=== PATIENT | male | born 2000 | race Caucasian/White ===

== ENCOUNTER 2021-01-07 14:12 | Observation (INO) | payer MEDICAID, SELFPAY ==
[2021-01-07 14:13] VITALS: BP 132/66; PULSE 112; RESP 18; TEMP 36.6; O2SAT 94
[2021-01-07 14:19] VITALS: RESP 18
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
[2021-01-07] MEDS: LORazepam 2 MG/ML VIAL IM (16:53)
[2021-01-07] MEDS: Haloperidol 5 MG/ML VIAL IM/IV (16:53)
[2021-01-07 17:48] LABS: Abs Immature Grans 0.01 10^3/uL (0.0-0.06); Absolute Basophil Count 0.03 10^3/uL (0.0-0.2); Absolute Eosinophil Count 0.11 10^3/uL (0.0-0.7); Absolute Monocyte Count 0.35 10^3/uL (0.1-0.8); Absolute Neutrophil Count 4.32 10^3/uL (1.2-6.7); Basophils % 0.4; Eosinophils % 1.6; HCT 43.1 % (40.0-50.0); HGB 14.6 g/dL (13.5-17.5); Immature Grans % 0.1; Lymphocytes % 29.3; MCH 30.4 pg (27.0-33.0); MCHC 33.9 % (32.0-36.0); MCV 89.8 fL (80-95); MPV 9.9 fL (8.0-11.0); Monocytes % 5.1; Neutrophils % 63.5; Nucleated RBC 0 %; Platelet Count 238 10^3/uL (130-400); RDW 11.4 % (11.8-14.1); RDW-SD 37.3 fL; WBC 6.82 10^3/uL (4.4-10.8)
[2021-01-07 18:15] LABS: ALT 22 U/L (16-63); AST 20 U/L (15-37); Alkaline Phosphatase 67 U/L (46-116); BUN 14 mg/dL (7-18); Bilirubin, Total 0.5 mg/dL (0.2-1.0); CREATININE 0.7 mg/dL (0.70-1.30); Calcium 8.9 mg/dL (8.5-10.1); Chloride 106 mmol/L (98-107); Glucose 93 mg/dL (74-106); Magnesium 1.9 mg/dL (1.8-2.4); Potassium 3.4 mmol/L (3.5-5.1); Sodium 143 mmol/L (136-145); TSH (W/Ref FT4) 2.08 uIU/mL (0.52-4.13); Total Protein 7.2 g/dL (6.4-8.2)
[2021-01-07 19:25] LABS: Bilirubin Negative (Negative); Blood Negative (Negative); Clarity Clear (Clear); Glucose Negative (Negative); Ketones 40 mg/dL (Negative); Leukocyte Esterase Negative (Negative); Nitrite Negative (Negative); Specific Gravity >= 1.030 (1.005-1.025); Urobilinogen 0.2 EU/dL (Up TO 0.2); pH 6.5 (5-8)
[2021-01-07 19:28] LABS: C-Reactive Protein < 0.05 mg/dL (0.0-0.3)
--- NOTE | 2021-01-07 20:21 | PDOC.MHCN ---
Date of service: 01/07/21 Time of Service: 20:21 Mental Health Crisis Note Presenting Issue How did you arrive at the ED and why did you come: Pt arrived via ambulance after his father and guardian called for one in hopes that he would go to [facility]. The ambulance informed him and the home provider that they would only bring to [facility]. Precipitating Factors Pt responds via shaking his whole body or smiling for yes or head no for no per Dr. Drake's interactions. This is not as clear to this clinician in her interactions. He shock his whole body when asked if he was suicidal. He shoock his head no when asked about homicide. Disposition BEHAVIOR: Pt is asleep when this clinician arrived. It took several times of calling his name to wake him. He is quick to roll over and go back to sleep when the brief interaction is done as this clinician cannot get a full assessment of the Pt without his communication device and all documentation here is a guess and not able to be confirmed. Pt is reported to not be taking his medications, eating or drinking. He answered as above to these questions to what this clinician is believing is a yes. Once the father came with his chair and his communication device we learned that the Pt deleted his device's memory. Dad tried to fill in gaps. EYE CONTACT: Eye contact is fair initially but continued to become worse. MOOD: Mood is reported by Pt to be depressed. Again, as the Pt responded earlier he moved his body but did not smile. AFFECT: affect is flat. APPETITE: Pt again, with body movements as described by Dr. Drake he seemed to say yes. SLEEP(trouble falling/staying asleep: Pt reported that he is sleeping. Plan Pt's father is seeking an inpatient referral for psychiatric assessment. [facility] will attempt to do this but will need the support of his team while he is at [facility]. He will remain at [facility] and father will try to upload his memory again with a [employer] [address]. Signature Clinician's Name/Title: Linnea Singh MS, [facility] Emergency Services Clinician
[2021-01-07 23:00] LABS: Source Nasal/Nares
--- NOTE | 2021-01-07 23:21 | HPE_ITS ---
Date of service: 01/07/21 Time of Service: 23:21 Assessment and Plan Assessment and plan (1) Agitation: Start date: 01/07/21 Status: Acute Assessment and plan: This is a 20-year-old gentleman with cerebral palsy who has worsening of depression with agitation and refusal of feeds or medications recently at his care facility. It appears he was recently placed with a parapatellarly rather than having lived there most of his life. His parents are . His father is being supported. Plans are for him to be transferred to [facility] inpatient psychiatry for evaluation and treatment. This is voluntary. He is not agitated after IM Haldol and Ativan was given in the ED early during his ED stay. (2) Depression: Status: Chronic Assessment and plan: Continue Lexapro but decrease dose to 10 mg daily and monitor awaiting placement for psychiatric care. Qualifiers: Depression Type: reactive depression Qualified Code(s): F32.9 - Major depressive disorder, single episode, unspecified (3) Cerebral palsy: Status: Chronic Assessment and plan: Continue usual medications except for decreased Lexapro. Continue feeds through J-tube. Patient apparently can eat when fed by mouth but has been refusing. This appears to be a stable problem but causing patient to be total care which is difficult during his social change. 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 He has depression and recently has been agitated and difficult to control refusing medical therapy at his care facility. He was brought to the ED for evaluation because of this problem and became more agitated as he stayed longer in the ED without transfer to [facility] where he had pediatric neurologist cares for the patient most of his life. He did receive Ativan and Haldol IM in the ED and was calm afterwards. His father did come in with his computer and irrigation device but this was not able to be used during his admission. At the time I saw the patient he was in his bed in the left position with blankets covering home and comfortable. He is on Lexapro 15 mg daily and pediatric neurology did suggested decreasing this medication but had no other suggestions immediately for treatment. He will be transferred to [facility] psychiatric for inpatient care voluntarily in the morning. Patient offers no further history. Is unclear how long he has been at the care facility and whether he is from his parents who are going through a separation themselves may have contributed to his activity recently. Review of Systems Narrative: 13 point review of systems otherwise unrevealing course stable with patient having minimal conversation with the ED physician for review of systems. [facility] Medical History Cerebral palsy Depression Social History Smoking/Tobacco Use Status: Never Smoking risk assessment performed?: Yes Alcohol Intake: never Drug use: Never Substance use type: does not use Meds Allergies and Home Medications Allergies Allergy/AdvReac Type Severity Reaction Status Date / Time codeine Allergy Other (See Unverified 01/07/21 16:07 Comment) gabapentin Allergy Other (See Unverified 01/07/21 16:07 Comment) gluten Allergy Other (See Unverified 01/07/21 16:07 Comment) Home Medications Medication Instructions Recorded Confirmed Type Lactobacillus acidophilus 1 cap FEEDING TUBE HS 01/07/21 01/07/21 History acetaminophen 650 mg FEEDING TUBE PRN PRN 01/07/21 01/07/21 History diphenhydramine HCl [Banophen] 25 mg FEEDING TUBE Q6H PRN 01/07/21 01/07/21 History escitalopram oxalate [Lexapro] 5 mg FEEDING TUBE DAILY 01/07/21 01/07/21 History escitalopram oxalate [Lexapro] 10 mg FEEDING TUBE DAILY 01/07/21 01/07/21 History ibuprofen 400 mg FEEDING TUBE PRN PRN 01/07/21 01/07/21 History midazolam 5 mg INTRANASAL PRN PRN 01/07/21 01/07/21 History quetiapine [Seroquel] 25 mg FEEDING TUBE DAILY PRN 01/07/21 01/07/21 History tizanidine 2 mg FEEDING TUBE BID 01/07/21 01/07/21 History Exam Narrative Exam Narrative: General: Patient appears thin but not malnourished having recently refused feeds through his J-tube. He is in the position on the left side in bed. HEENT: Normocephalic, eyes with pupils equal and reactive light symmetrically, extraocular movement intact and sclera anicteric. Neck: Supple. Back: Stooped posture with patient curled up. Lungs: Clear to auscultation percussion. Heart: Regular rate and rhythm with no murmurs gallops appreciated. Abdomen: Scaphoid contour, soft and nontender to palpation. Genitalia/rectal: Exam deferred. Extremities: Without clubbing, cyanosis or edema. Joints have no swelling. Skin: Normal color, warm and dry. Neuro: Cranial nerves II through XII appear to be grossly intact, no focal motor deficits with patient moving all extremities. Psych: Cerebral palsy affect, noncommunicative. Results Labs Result diagrams: 01/07/21 17:42 01/07/21 17:42 Labs: Laboratory Results - last 24 hr 01/07/21 01/07/21 01/07/21 17:42 17:42 17:42 WBC 6.82 RBC 4.80 Hgb 14.6 Hct 43.1 MCV 89.8 MCH 30.4 MCHC 33.9 RDW 11.4 L Plt Count 238 MPV 9.9 Immature Gran % 0.1 Neutrophils % 63.5 Lymphocytes % 29.3 Monocytes % 5.1 Eosinophils % 1.6 Basophils % 0.4 Nucleated RBC % 0 Absolute Neutrophils 4.32 Absolute Lymphocytes 2.00 Absolute Monocytes 0.35 Absolute Eosinophils 0.11 Absolute Basophils 0.03 Sodium 143 Potassium 3.4 L Chloride 106 Carbon Dioxide 28.0 Anion Gap 9.0 BUN 14 Creatinine 0.7 Estimated GFR/1.73 m2 >= 60.00 Glucose 93 Calcium 8.9 Magnesium 1.9 Total Bilirubin 0.5 AST 20 ALT 22 Alkaline Phosphatase 67 C-Reactive Protein < 0.05 Total Protein 7.2 Albumin 4.0 TSH 2.08 Urine Color Urine Clarity Urine pH Ur Specific [place] Urine Protein Urine Ketones Urine Blood Urine Nitrite Urine Bilirubin Urine Urobilinogen Ur Leukocyte Esterase Urine Glucose COVID-19 Source 01/07/21 01/07/21 19:17 22:55 WBC RBC Hgb Hct MCV MCH MCHC RDW Plt Count MPV Immature Gran % Neutrophils % Lymphocytes % Monocytes % Eosinophils % Basophils % Nucleated RBC % Absolute Neutrophils Absolute Lymphocytes Absolute Monocytes Absolute Eosinophils Absolute Basophils Sodium Potassium Chloride Carbon Dioxide Anion Gap BUN Creatinine Estimated GFR/1.73 m2 Glucose Calcium Magnesium Total Bilirubin AST ALT Alkaline Phosphatase C-Reactive Protein Total Protein Albumin TSH Urine Color Yellow Urine Clarity Clear Urine pH 6.5 Ur Specific [place] >= 1.030 H Urine Protein Negative Urine Ketones 40 H Urine Blood Negative Urine Nitrite Negative Urine Bilirubin Negative Urine Urobilinogen 0.2 Ur Leukocyte Esterase Negative Urine Glucose Negative COVID-19 Source Nasal/nares Last Vital Signs Temp 36.6 C 01/07/21 14:13 Pulse 112 H 01/07/21 14:13 Resp 18 01/07/21 14:19 BP 132/66 01/07/21 14:13 Pulse Ox 94 01/07/21 14:13 COVID-19 Screening Have you, or household traveled for leisure in last 14 days?: No Had IN PERSON contact w/suspected or confirmed C-19 person: No
--- NOTE | 2021-01-07 23:56 | CMSP_ITS ---
- If Service Date Differs Date of service: 01/07/21 Time of Service: 23:56 Care Management Safety Plan Status: Voluntary Alfonso is a 20 year old male with cerebral palsy, who is non verbal and lives in an [facility] home with a real time trader caregiver. His caregiver reports that he has been increasingly agitated and aggressive in the past few weeks. Per report, his father feels that this is not his baseline behavior. Alfonso was screened by [facility], although his communication presents a barrier and the device he uses to communicate is currently not operational. Alfonso was found to be depressed and is voluntary for psychiatric stabilization. Per report, Alfon[place] [facility] and per MD, would be the most appropriate facility. MD will reach out to assist in coordinating transfer [place] [facility]. CM will continue to follow. VOLUNTARY FOR INPATIENT PSYCHIATRIC STABILIZATION. Patient is appropriate in all interactions since arriving at [facility]; Pt has demonstrated appropriate coping and communication skills, has articulated his or her needs and concerns and is fully engaged during staff interactions. Safety plan has been established with patient, and care team, to adhere to patient goals, identify restrictions based on behavioral status, address nutrit ion, and determine allowed personal belongings, tools for hygiene and personal care. Determine level of activity including ambulation, level of supervision, visitors, and determine privileges based on behaviors and level of engagement by pt. SAFETY PLAN: 1. Will remain on suicide precautions. In Paper Clothes. May be in own clothes, at discretion of staff. 2. Will remain in room under direct supervision of one-on-one staff at all times provided by [employer]; ALBERT, SCHOOL PSYCHOMETRIST supervisor finishing. 3. May have paper cups, plates, finger foods as well as a cardboard spoon with which to eat meals. 4. Follow [facility] Management of the Admitted Behavioral Health Patient policy. 5. Comfort bath system only. 6. No personal belongings 7. Visitors- Parents, supportive staff/caregivers, at discretion of care team. 8. Activities: soft items, TV, all at RN discretion. 9. Bathroom privileges without limitation. 10. Due to VOLUNTARY status, if patient wishes to leave [facility], staff will contact [facility] Crisis Screener ([phone]) and On-Call Class C Driver ([phone]) as soon as possible. In the event of elopement, notify [facility] Police ([phone]). Patient is currently voluntarily at [facility] and seeking inpatient admission when a bed becomes available. [facility] Frontline Sales Support Associate will continue seeking placement. Please contact the Senior Mechanical Engineer Class C Driver ([phone]) and [facility] Sales Support Associate ([phone]) for any needed changes in the Safety Plan. Safety plan has been provided to interdepartmental care team.
--- NOTE | 2021-01-07 23:56 | PDOC.CMSAFED ---
- If Service Date Differs Date of service: 01/07/21 Time of Service: 23:56 Care Management Safety Plan Status: Voluntary Alfonso is a 20 year old male with cerebral palsy, who is non verbal and lives in an [facility] home with a night time babysitter caregiver. His caregiver reports that he has been increasingly agitated and aggressive in the past few weeks. Per report, his father feels that this is not his baseline behavior. Alfonso was screened by [facility], although his communication presents a barrier and the device he uses to communicate is currently not operational. Alfonso was found to be depressed and is voluntary for psychiatric stabilization. Per report, Alfonso has a care team at [facility], and per MD, would be the most appropriate facility. MD will reach out to assist in coordinating transfer to [facility]. CM will continue to follow. VOLUNTARY FOR INPATIENT PSYCHIATRIC STABILIZATION. Patient is appropriate in all interactions since arriving at [facility]; Pt has demonstrated appropriate coping and communication skills, has articulated his or her needs and concerns and is fully engaged during staff interactions. Safety plan has been established with patient, and care team, to adhere to patient goals, identify restrictions based on behavioral status, address nutrition, and determine allowed personal belongings, tools for hygiene and personal care. Determine level of activity including ambulation, level of supervision, visitors, and determine privileges based on behaviors and level of engagement by pt. SAFETY PLAN: 1. Will remain on suicide precautions. In Paper Clothes. May be in own clothes, at discretion of staff. 2. Will remain in room under direct supervision of one-on-one staff at all times provided by [employer]; ALBERT, MAINFRAME SYSTEMS PROGRAMMER online program coordinator. 3. May have paper cups, plates, finger foods as well as a cardboard spoon with which to eat meals. 4. Follow [facility] Management of the Admitted Behavioral Health Patient policy. 5. Comfort bath system only. 6. No personal belongings 7. Visitors- Parents, supportive staff/caregivers, at discretion of care team. 8. Activities: soft items, TV, all at RN discretion. 9. Bathroom privileges without limitation. 10. Due to VOLUNTARY status, if patient wishes to leave [facility], staff will contact [facility] Crisis Screener ([phone]) and On-Call General Office Clerk ([phone]) as soon as possible. In the event of elopement, notify [facility] Police ([phone]). Patient is currently voluntarily at [facility] and seeking inpatient admission when a bed becomes available. [facility] Frontline Strategic Debriefing Specialist will continue seeking placement. Please contact the Accounting Support Specialist General Office Clerk ([phone]) and [facility] Strategic Debriefing Specialist ([phone]) for any needed changes in the Safety Plan. Safety plan has been provided to interdepartmental care team.
[2021-01-08] VITALS (10 sets, daily range): BP systolic 100–118; BP diastolic 57–82; PULSE 65–119; RESP 16–18; TEMP 35.8–36.7; O2SAT 93–97
[2021-01-08] MEDS: Escitalopram 10 MG TAB PO (09:07)
--- NOTE | 2021-01-08 14:43 | PDOC.MHCN_ITS ---
Date of service: 01/08/21 Time of Service: 13:43 Mental Health Crisis Note Presenting Issue How did you arrive at the ED and why did you come: Client arrived at the ED last night 01/07/21 via ambulance after a physically aggressive episode at his Shared Living Provider's home. Clients family wanted him to be brought to [facility], but client was brought to [facility]. Precipitating Factors Client is non verbal, but is able to shake his head for no, and smile for yes. Client shakes his head no, when asked if he was having SI. Client shakes his head no when asked HI. Disposition BEHAVIOR: Client is responsive to this writers questions. EYE CONTACT: Client makes eye contact with this bond underwriter throughout the assessment. MOOD: Client smiles yes when asked if he was depressed. AFFECT: Clients affect is normal. APPETITE: Client shakes his head yes when asked if he was hungry. SLEEP(trouble falling/staying asleep: When client is asked if he slept well last night, he smiled yes Plan Client will remain at [facility] on medical observation for the evening. [facility] will pick him up tomorrow and transport him to his next placement. Mom and Dad were both contacted to let them know the plan. A message was left for both of them to contact Tere Swartz at [facility] to coordinate feeding and dietary restrictions. Signature Clinician's Name/Title: Nimo Zimmer [facility] Emergency Clinician
[2021-01-08 15:29] LABS: COVID-19 PCR Negative (Negative)
--- NOTE | 2021-01-08 16:00 | PGE_ITS ---
Date of Service Date of service: 01/08/21 Time of Service: 16:00 Assessment and Plan Assessment and plan (1) Depression: Status: Chronic Assessment and plan: He does endorse being depressed; no SI Cont current routine home meds. Planning d/c tomorrow to care [facility]. Qualifiers: Depression Type: reactive depression Qualified Code(s): F32.9 - Major depressive disorder, single episode, unspecified (2) Cerebral palsy: Status: Chronic Assessment and plan: Nonverbal. Has a communication device/computer, but is currently not functioning. Qualifiers: Cerebral palsy type: spastic quadriplegic Qualified Code(s): G80.0 - Spastic quadriplegic cerebral palsy (3) Agitation: Status: Acute Assessment and plan: Now cooperative. Had been refusing to eat apparently at his [facility]. Now hungry and diet ordered. Subjective Subjective Patient reports: afebrile Interval history since last seen: Pt is nonverbal; shakes head for no, smiles for yes. No current pain. No SI. Exam Const General: cooperative, no acute distress and other (Initially was asleep; wakens readily) Nutritional Appearance: underweight Neck Neck: full ROM Resp Effort & Inspection: normal respiratory effort Auscultation: clear to auscultation bilaterally Cardio Rate: regular rate Rhythm: regular rhythm GI Palpation: soft and nontender Extrem General: no pedal edema and no calf tenderness Objective Last Vital Signs Temp 36.7 C 01/08/21 09:16 Pulse 119 H 01/08/21 09:16 Resp 18 01/08/21 09:16 BP 100/57 L 01/08/21 09:16 Pulse Ox 96 01/08/21 09:16 Laboratory Results - last 24 hr 01/07/21 01/07/21 01/07/21 17:42 17:42 17:42 WBC 6.82 RBC 4.80 Hgb 14.6 Hct 43.1 MCV 89.8 MCH 30.4 MCHC 33.9 RDW 11.4 L Plt Count 238 MPV 9.9 Immature Gran % 0.1 Neutrophils % 63.5 Lymphocytes % 29.3 Monocytes % 5.1 Eosinophils % 1.6 Basophils % 0.4 Nucleated RBC % 0 Absolute Neutrophils 4.32 Absolute Lymphocytes 2.00 Absolute Monocytes 0.35 Absolute Eosinophils 0.11 Absolute Basophils 0.03 Sodium 143 Potassium 3.4 L Chloride 106 Carbon Dioxide 28.0 Anion Gap 9.0 BUN 14 Creatinine 0.7 Estimated GFR/1.73 m2 >= 60.00 Glucose 93 Calcium 8.9 Magnesium 1.9 Total Bilirubin 0.5 AST 20 ALT 22 Alkaline Phosphatase 67 C-Reactive Protein < 0.05 Total Protein 7.2 Albumin 4.0 TSH 2.08 Urine Color Urine Clarity Urine pH Ur Specific [place] Urine Protein Urine Ketones Urine Blood Urine Nitrite Urine Bilirubin Urine Urobilinogen Ur Leukocyte Esterase Urine Glucose COVID-19 Source SARS-CoV-2 (PCR) 01/07/21 01/07/21 19:17 22:55 WBC RBC Hgb Hct MCV MCH MCHC RDW Plt Count MPV Immature Gran % Neutrophils % Lymphocytes % Monocytes % Eosinophils % Basophils % Nucleated RBC % Absolute Neutrophils Absolute Lymphocytes Absolute Monocytes Absolute Eosinophils Absolute Basophils Sodium Potassium Chloride Carbon Dioxide Anion Gap BUN Creatinine Estimated GFR/1.73 m2 Glucose Calcium Magnesium Total Bilirubin AST ALT Alkaline Phosphatase C-Reactive Protein Total Protein Albumin TSH Urine Color Yellow Urine Clarity Clear Urine pH 6.5 Ur Specific [place] >= 1.030 H Urine Protein Negative Urine Ketones 40 H Urine Blood Negative Urine Nitrite Negative Urine Bilirubin Negative Urine Urobilinogen 0.2 Ur Leukocyte Esterase Negative Urine Glucose Negative COVID-19 Source Nasal/nares SARS-CoV-2 (PCR) Negative
--- NOTE | 2021-01-08 16:10 | INITIAL_ITS ---
- If Service Date Differs Date of service: 01/08/21 Time of Service: 16:10 Care Management Initial Assess REASON FOR HOSPITALIZATION:: Depression with agitation PAST MEDICAL HISTORY/PAST SURGICAL HISTORY:: Medical History. Cerebral palsy. Depression PREVIOUS FUNCTIONAL STATUS/SOCIAL/FAMILY SUPPORTS:: Alfonso has cerebral palsy and is wheelchair bound at baseline. He lives in an AF home with his caregiver, Magnolia. Magnolia's mother provides respite care. His parents, Abel and Merissa (who are currently ) are his legal guardians. His immigration case worker, Ebony Leon, is from [facility]. He is non verbal, but does answer yes (smiles) and no (nods head) questions. He has a communication tablet that is currently not operational. He requires complete care by his caregivers. CURRENT FUNCTIONAL STATUS:: Alfonso was lying in bed when CM met with him. He was awake and alert. KIEL Suero was present, and completed an assessment to determine if Alfonso was feeling SI/HI. Alfonso was very clear in his answers to her yes/no questions, stating that he does not have any current SI/HI. He did agree that he is depressed. Per [facility], he does not meet criteria for inpatient psychiatric stablization. His [employer]PS[employer] order was cancelled, and he no longer has a safety plan in place. He remains appropriate in interactions. JUDITH and Nimo called ROQUE Leal, who reported that she can arrange for transport home tomorrow. JUDITH discussed this with , who is in agreement to monitor him overnight. JUDITH will continue to follow. ADVANCE DIRECTIVES:: None on file. Has patient been provided with info about the portal/API?: No Did the patient sign up for the portal?: No CODE STATUS:: Full Code INSURANCE COVERAGE / FINANCIAL ISSUES:: [employer] CURRENT HOME/COMMUNITY SERVICES/EQUIPMENT:: Alfonso lives in an [facility] home which provides 24/7 care. He has a motorized wheelchair and assistive devices to communicate. He has a immigration case worker through [facility]. PRIMARY CARE PHYSICIAN:: Frank Berg POTENTIAL DISCHARGE NEEDS:: Evaluations for further needs, follow up appointments. PATIENT/FAMILY EDUCATION NEEDS:: Review discharge instructions regarding medications and care needs, discussion of goals of care. ANTICIPATED BARRIERS TO DISCHARGE:: Alfonso must be transported by a specific wheel chair van for his motorized wheel chair. His home care provider is hesitant to have him back after his aggressive behavior. TRANSPORTATION:: Via pt's own wheelchair van. PLAN:: Anticipate Alfonso will return to his AF home when medically cleared. He will follow up with [place] care team [place] [facility] and his discharge plan of care. His immigration case worker/care provider will drive him home via private wheelchair van. CM will continue to follow.
[2021-01-08] MEDS: diphenhydrAMINE Elixir 25 MG/10 ML CUP NG (22:03)
[2021-01-08] MEDS: QUEtiapine 25 MG TAB PO (22:04)
[2021-01-09 07:30] VITALS: BP 106/70; PULSE 90; RESP 24; TEMP 36.6; O2SAT 92
--- NOTE | 2021-01-09 07:48 | W.PM.DS.N ---
Date of service: 01/09/21 Time of Service: 07:48 DS: Diagnosis Discharge Diagnosis (1) Depression: Status: Chronic (2) Cerebral palsy: Status: Chronic (3) Agitation: Status: Acute Discharge Plan Disposition Patient Disposition: OTHER Condition: Serious Discharge Details Reason For Visit: DEPRESSION WITH AGITATION Admit Date/Time: 01/07/21 22:35 Admit Provider: Frank Soria Attending Provider: Frank Soria Primary Care Provider: Frank Berg Hospital Course Hospital Course: This is a 20-year-old male patient with cerebral palsy recently placed on a care facility and his parents are .? He has depression and recently has been agitated and difficult to control refusing medical therapy at his care facility.? He was brought to the ED for evaluation because of this problem and became more agitated as he stayed longer in the ED without transfer to [facility] where he had pediatric neurologist who has cared for the patient most of his life.? He did receive Ativan and Haldol IM in the ED and was calm afterwards.? His father did come in with his computer and irrigation device but this was not able to be used during his admission.? He is on Lexapro 15 mg daily and pediatric neurology did suggested decreasing this medication but had no other suggestions immediately for treatment.? It had been reported that he was refusing to eat or allow tube feedings prior to presentation. Lab w/u was unremarkable. Once admitted he did eat and allow medications and free water via his enteral tube. He was evaluated by [facility] Emergency Clinician. He communicated with smiling for yes and shaking head for no. He denied suicidality, but endorsed depression. [facility] did not have a bed available for transfer. It was understood that he does periodically have agitated, defiant behaviors. He will be discharged in the care of [facility] and transported to his next placement. His Mother and Father were both aware of this plant. Home Meds and New Rx's Prescriptions: Continued quetiapine [Seroquel] 25 mg Tablet 25 mg feeding tube DAILY PRNRF: 0 acetaminophen 325 mg Tablet 650 mg feeding tube PRN PRNRF: 0 diphenhydramine HCl [Banophen] 25 mg Tablet 25 mg feeding tube Q6H PRNRF: 0 ibuprofen 200 mg Tablet 400 mg feeding tube PRN PRNRF: 0 Lactobacillus acidophilus Capsule 1 cap feeding tube HS RF: 0 escitalopram oxalate [Lexapro] 10 mg Tablet 10 mg feeding tube DAILY RF: 0 tizanidine 2 mg Capsule 2 mg feeding tube BID RF: 0 midazolam 5 mg/spray (0.1 mL) Dresser,Non-Aerosol 5 mg INTRANASAL PRN PRNRF: 0 Discontinued escitalopram oxalate [Lexapro] 5 mg Tablet 5 mg feeding tube DAILY RF: 0 Discharge Instructions Activity:: Bedbound Equipment/Supplies:: No Equipment Needed Diet:: gluten-free Discharge Orders Discharge Orders: Discharge Order (Routine); Ordered 01/09/21 Ordered By: Francisco Thomas DS: Summary Time Spent with Patient providing and/or coordinating discharge services: Greater than 30 minutes Status at Discharge Functional status at discharge: bed bound Overall status at discharge: patient is back to baseline Mental Status: mental status grossly normal Speech and Movement: mute and other Mood: dysthymic mood Affect: other (Initially labile, now blunted) Exam Psych Mental Status: mental status grossly normal Speech and Movement: mute Mood: dysthymic mood DS: Data Vitals/I&O Vitals and I&O: Vital Signs Temperature 36.6 C 01/08/21 20:30 Temperature Source Temporal Artery Scan 01/08/21 20:30 Pulse 113 H 01/08/21 20:25 Respiratory Rate 16 01/08/21 20:30 Respiratory Effort 01/08/21 20:30 Respiratory Depth Normal 01/08/21 20:30 Respiratory Pattern Normal 01/08/21 20:30 Blood Pressure 118/61 01/08/21 20:25 Blood Pressure Mean 66 01/08/21 20:25 Blood Pressure Position Right Lateral 01/08/21 00:36 Pulse Oximetry 93 01/08/21 20:27 Oxygen Delivery Method Room Air 01/08/21 20:30 Oxygen Flow Rate 0 01/08/21 20:30 Pain Level 0 01/08/21 20:30 Comment 01/08/21 16:33 Intake & Output 01/08/21 01/08/21 01/09/21 11:59 23:59 11:59 Weight 55.5 kg Other: Urine Color Yellow Urine Odor Strong Comment urine occurange x1 Data Completed and Pending Labs on day of discharge: Labs from last 24 hours 01/07/21 22:55 SARS-CoV-2 (PCR) Negative [facility] Medical History Cerebral palsy Depression Social History Smoking/Tobacco Use Status: Never Smoking risk assessment performed?: Yes Alcohol Intake: never Drug use: Never Substance use type: does not use
[2021-01-09] MEDS: Escitalopram 10 MG TAB PO (08:25)
--- NOTE | 2021-01-09 14:53 | CMDISCH_ITS ---
- If Service Date Differs Date of service: 01/09/21 Time of Service: 14:53 LACE Index Scoring Tool - Questions: Length of Stay (in days): 2 Acuity (Admit via E.D.?): Yes E.D. Visits: 1 - Answers: Total Score: 6 Risk of Readmission: Low Risk Care Management Discharge Reason for Hospitalization: Depression with agitation Discharge Plan: Alfonso was discharged today into the care of his trimming caser from [facility], where he is placed in an adult family senior living. He was transported by his own wheelchair van and motorized wheel chair. He will follow up with his care team and discharge plan of care. Patient/Family Education Needs: Review discharge instructions with pt and care team, discussion of self care needs including ask me three.
== END 2021-01-09 14:05 | disposition other institution (70) ==
LOC: ER 22:52 → ICU 01-08 00:28
PROVIDERS: Emergency Medicine; Admitting Provider Family Medicine; Emergency Provider Student in an Organized Health Care Education/Training Program; PCP Family Medicine; Visit Provider Family Medicine
DX: F32.9 Major depressive disorder, single episode, unspecified (principal); R45.1 Restlessness and agitation; G80.0 Spastic quadriplegic cerebral palsy; Z79.899 Other long term (current) drug therapy; Z20.822 Contact with and (suspected) exposure to COVID-19
CPT/HCPCS: 36415; 80053; 87635; 96372; 99285; 81003; 83735; 84443; 85025; 86140; 99219; 99225; 99284; G0378; J1630; J2060